=== PATIENT | female | born 1965 | race Caucasian/White ===

== ENCOUNTER 2016-08-28 08:52 | Emergency (ER) | payer BC ==
[~2016-08-28 08:52] MED LIST: BACITRACIN15 GM OINT EXT; KEFLEX500 MG PO
[2016-08-28] MEDS ORDERED: HYDROCHLOROTHIA25 MG (09:07)
[2016-08-28] MEDS ORDERED: ALLEGRA ALLERG180 MG PO (09:07)
[2016-08-28] MEDS ORDERED: FLOVENT DISKUS50 MCG (09:08)
[2016-08-28] MEDS ORDERED: LODINE XL400 M1 PO (09:09)
[2016-08-28] MEDS ORDERED: ASPIRIN81 MG PO (09:09)
[2016-08-28] MEDS ORDERED: CRESTOR5 MG PO (09:09)
[2016-08-28] MEDS ORDERED: FISH OIL 1,001000 M2 (09:09)
[2016-08-28] MEDS ORDERED: BUSPIRONE HCL7.5 MG PO (09:09)
[2016-08-28] MEDS ORDERED: PRILOSEC PO (09:10)
[2016-08-28] MEDS ORDERED: CITALOPRAM HBR40 M1 (09:10)
[2016-08-28] MEDS ORDERED: [UNRECOGNIZED DRUG - CODE] (09:10)
[2016-08-28] MEDS ORDERED: B-COMPLEX PLUS1 EACH (09:10)
[2016-08-28] MEDS ORDERED: HYDROCODON-ACE1 EA13 (09:11)
[2016-08-28 09:38] LABS: URINE APPEARANCE CLEAR; URINE BLOOD 2+ (NEG); URINE COLOR YELLOW; URINE GLUCOSE NEG (NORM); URINE KETONE NEG (NEG); URINE LEUKOCYTE ESTERASE NEG (NEG); URINE NITRATE NEG (NEG); URINE PROTEIN NEG (NEG); URINE UROBILINOGEN 0.2 MG/DL (NORM)
[2016-08-28 09:39] LABS: MICRO INDICATED? YES; URINE BILIRUBIN NEG (NEG)
[2016-08-28 09:46] LABS: CULTURE INDICATED? NO; URINE BACTERIA NEG (NEG); URINE RBC 0-2 /[HPF] (0-2); URINE SQUAMOUS EPITHELIAL CELL FEW /[HPF]; URINE WBC NEG /[HPF] (0-5)
[2016-08-30 23:18] LABS: CHLAMYDIA TRACH Not Detected (Not Detected); N GONOR Not Detected (Not Detected)
== END 2016-08-28 10:55 | disposition home or self-care (01) ==
LOC: SED 08:52
PROVIDERS: Emergency Medicine
DX: N93.9 Abnormal uterine and vaginal bleeding, unspecified (principal); R10.2 Pelvic and perineal pain; F41.9 Anxiety disorder, unspecified; F17.200 Nicotine dependence, unspecified, uncomplicated; Z88.2 Allergy status to sulfonamides; Z79.899 Other long term (current) drug therapy; Z79.82 Long term (current) use of aspirin
CPT/HCPCS: 81003; 87210; 87491; 87591; 87808; 87905; 96372; 99284; J1885

== ENCOUNTER 2016-10-03 21:29 | Emergency (ER) | payer BC ==
[~2016-10-03] VITALS: Ht 167.6 cm; Wt 68.0 kg
[~2016-10-03 21:29] MED LIST changes: +ALLEGRA ALLERG180 MG PO; +ASPIRIN81 MG PO; +B-COMPLEX PLUS1 EACH; +BUSPIRONE HCL7.5 MG PO; +CITALOPRAM HBR40 M1; +CRESTOR5 MG PO; +FISH OIL 1,001000 M2; +FLOVENT DISKUS50 MCG; +HYDROCHLOROTHIA25 MG; +HYDROCODON-ACE1 EA13; +LODINE XL400 M1 PO; +PRILOSEC PO; +[UNRECOGNIZED DRUG - CODE]
== END 2016-10-03 23:08 | disposition home or self-care (01) ==
LOC: SED 21:29
DX: H11.31 Conjunctival hemorrhage, right eye (principal); F17.210 Nicotine dependence, cigarettes, uncomplicated; Z88.2 Allergy status to sulfonamides; Z79.899 Other long term (current) drug therapy; Z79.82 Long term (current) use of aspirin
CPT/HCPCS: 99283

== ENCOUNTER 2016-11-03 17:34 | Emergency (ER) | payer BC ==
[~2016-11-03] VITALS: Ht 167.6 cm; Wt 68.9 kg
--- NOTE | ~2016-11-03 | CR210 ---
[facility]. [facility] A Service of [facility] / [facility] RADIOLOGY TEXT RESULTS PATIENT: SHAMAR CARTWRIGHT LOCATION: SED : 69 UNIT #: [id number] AGE: [address]: Kandi Carreno MD SEX: F ORDER DR: [id number] [address] [address] [id number] E MR#: [id number] Acc #: [id number] NAME: SHAMAR CARTWRIGHT : 1965 SEX: F STUDY DATE/TIME: 11/03/2016 18:19 UNIT: SED ROOM: STUDY DESCRIPTION: CR Ribs Uni 2 View W PA Ch Lt Attending Physician: Kandi Carreno M.D. Ordering Physician: Oren Aguilera M.D. Primary Care Physician: Noe Villalba M.D. MEDICAL IMAGING REPORT This report is preliminary unless electronic signature is present. EXAM Left rib series, 11/03/2016 HISTORY Pain status post fall on Friday. FINDINGS AP radiograph of the chest presented with AP and oblique radiographs of the left ribs. Old healed left posterolateral third rib fracture. No acute fracture seen. Heart and mediastinum normal in size and contour. Lungs are well inflated and clear. No evidence of acute infectious or inflammatory disease, pleural effusion or pneumothorax. No suspicious nodule. Visualized abdomen unremarkable. Dictated by... Jenaro Koch M.D. THIS IS AN ELECTRONICALLY VERIFIED REPORT Jenaro Koch M.D. at 11/04/2016 3:16 PM SHADIA/cinda TD: 11/03/2016 23:28 JOB #: [id number] MEDICAL IMAGING REPORT Page 1 of 1
--- NOTE | ~2016-11-03 | CR243 ---
[facility]. [facility] A Service of [facility] & [facility] / [facility] RADIOLOGY TEXT RESULTS PATIENT: SHAMAR CARTWRIGHT LOCATION: SED : 69 UNIT #: [id number] AGE: [address]: Kandi Carreno MD SEX: F ORDER DR: [id number] [address] [address] [id number] E MR#: [id number] Acc #: [id number] NAME: SHAMAR CARTWRIGHT : 1965 SEX: F STUDY DATE/TIME: 11/03/2016 18:19 UNIT: SED ROOM: STUDY DESCRIPTION: CR Thoracic Spine 3 Views Attending Physician: Kandi Carreno M.D. Ordering Physician: Oren Aguilera M.D. Primary Care Physician: Noe Villalba M.D. MEDICAL IMAGING REPORT This report is preliminary unless electronic signature is present. EXAM Thoracic spine series 11/03/2016 HISTORY Pain status post fall on Friday. FINDINGS AP, lateral and swimmer's views of the thoracic spine are presented. The thoracic spine shows normal alignment, without evidence of spinal fracture. The vertebral body heights and intervertebral disc space heights are normal. The visualized cervical and lumbar spinal segments are unremarkable. The central lung zones are clear and the cardiomediastinal contours are normal. There is a fracture of the posterolateral left third rib. Its appearance suggests that this is an old, healed fracture. Given this single AP view, I cannot entirely exclude a minimally displaced acute fracture. Please correlate with location of patient's pain and mechanism of injury. Remainder of visualized ribs unremarkable. Dictated by... Jenaro Koch M.D. THIS IS AN ELECTRONICALLY VERIFIED REPORT Jenaro Koch M.D. at 11/04/2016 3:16 PM SHADIA/jeremi TD: 11/03/2016 22:56 JOB #: [id number] MEDICAL IMAGING REPORT Page 1 of 1
[2016-11-03 18:37] LABS: URINE SOURCE CLEAN CATCH
[2016-11-03 18:40] LABS: URINE APPEARANCE HAZY; URINE COLOR YELLOW; URINE GLUCOSE NEG (NORM); URINE KETONE TRACE (NEG); URINE LEUKOCYTE ESTERASE NEG (NEG); URINE NITRATE NEG (NEG); URINE PROTEIN NEG (NEG); URINE SPECIFIC GRAVITY 1.025 (1.003-1.035)
[2016-11-03 18:45] LABS: URINE BILIRUBIN NEG (NEG)
[2016-11-03 18:47] LABS: MICRO INDICATED? YES; URINE BLOOD 1+ (NEG)
[2016-11-03 18:48] LABS: URINE BACTERIA NEG (NEG); URINE MUCUS PRESENT; URINE SQUAMOUS EPITHELIAL CELL MANY /[HPF]
== END 2016-11-03 19:43 | disposition home or self-care (01) ==
LOC: SED 17:34
PROVIDERS: Emergency Medicine
DX: S30.1XXA Contusion of abdominal wall, initial encounter (principal); F17.200 Nicotine dependence, unspecified, uncomplicated; Z79.899 Other long term (current) drug therapy; Z79.82 Long term (current) use of aspirin; Z88.2 Allergy status to sulfonamides; W18.2XXA Fall in (into) shower or empty bathtub, initial encounter
CPT/HCPCS: 71100; 72072; 81003; 96372; 99284; J1885